=== PATIENT | male | born 1985 | race Caucasian/White ===

== ENCOUNTER 2025-03-13 22:34 | Emergency (ER) | payer BC, SELFPAY ==
--- NOTE | ~2025-03-13 | XR_ITS ---
XR foot LT min 3V Ordering provider: Luis King MD History: . blunt trauma 1st 2nd toes . Comparison: None. FINDINGS: BONES: Fracture of the tip of the distal phalanx of the first and second toes. JOINT SPACES: Normal. No tarsal coalition. SOFT TISSUES: Soft tissue swelling over the distal phalanx of the first and second toes. IMPRESSION: Fracture of the tip of the distal phalanx of the first and second toes. Reviewed, dictated and finalized at location A.
[2025-03-13 22:55] VITALS: BP 193/77; PULSE 74; RESP 19; TEMP 36.7; O2SAT 99
--- OUTSIDE RECORDS SUMMARY | 2025-03-13 23:50 | XMS_ITS | Continuity of Care Document ---
Author Organization [facility] Address [address] [place] [address] Phone Care Team Providers Care Pouch Maker Name Role Phone Gómez Ledbetter MD Unavailable Unavailable Allergies, Adverse Reactions, Alerts Substance Reaction Status Criticality No Known Drug Allergies Active No I nformation Procedures Procedure Date Office/outpatient visit,est, mod 2017 Supplemental Report Office/outpatient visit,est, mod 2017 Supplemental Report Office/outpatient visit,est, mod 2017 Supplemental Report Office/outpatient visit,est, mod 2017 Supplemental Report Asp/inject intermed joint/bursa w/o US g uidance Depo Medrol Methylprednisolone 40 MG inj Office/outpatient visit,est, mod 2017 Supplemental Report X-ray exam elbow, 3+ views Office/outpatient visit,est, mod 2017 Supplemental Report Office consultation, moderate 8 Breath Alcohol Test Specimen Handling/transport X-ray exam elbow, 3+ views Foster Arm Sling Office/outpatient visit,new, mod 2017 Supplemental Report Office/outpatient visit,est, mod 2012 X-ray exam Lumbar 2-3 views Office/outpatient visit,new, mod 2012 Supplemental Report Office/outpatient visit,martha, mod 2012 Supplemental Report Office/outpatient visit,est, mod 2012 X-ray exam Lumbar 2-3 views Office/outpatient visit,new, mod 2012 Office consultation, moderate-high Assay, breath ethanol Specimen handling/transport Medical Review Officer Charge 9 Office/outpatient visit,est, mod 2008 Supplemental Report Office/outpatient visit,est, mod 2008 Supplemental Report Office/outpatient visit,est, mod 2008 Supplemental Report Office/outpatient visit,new, mod 2008 X-ray exam lower spine 2-3 views 2008 Advance Directives Directive Yes / No Effective Date File Name No Information Encounters Encounter Description Practice Location Reason(s) For Visit Diagnoses Date Provider Providers Copied on Encounter Office/outpa tient visit,est, [facility], [address], [id number], [place] [phone] [email or web address] right elbow (chief complaint) Other sprain of right elbow, sequelaPrimary osteoarthritis, right elbow Jan-0 8 Khloe Magaña. [address] [place] [address], [id number] , [place]. tel: [phone] Office/outpa tient visit,est, [facility], [address], [id number], [place] [phone] [email or web address] right elbow (chief complaint) Contusion of right elbow, subsequent encounterPain in right elbow 8 Khloe Magaña. [address] [place] [address], [id number] , [place]. tel: [phone] Office/outpa tient visit,est, [facility], [address], [id number], [place] [phone] [facility] right elbow (chief complaint) Pain in right elbow 8 Naterosendo Magaña. [address] [facility] [place] [address], [place], [place], [id number] , [place]. tel: [phone] Office/outpa tient visit,est, [facility], [address] [address], [place], [place], [id number], [place] [phone] [facility] right elbow (chief complaint) Pain in right elbowContusion of right elbow, subsequent encounter 8 Khloe Gómez. [address] [facility], [place] [address], [place], [place], [id number] , [place]. tel: [phone] Office/outpa tient visit,est, [facility], [address], [id number], [place] [phone] [facility] right elbow (chief complaint) Contusion of right elbow, subsequent encounter 8 Natehazelwillam Gómez. [address] [facility], [place] [address], [place], [place], [id number] , [place]. tel: [phone] Office/outpa tient visit,est, [facility], [address], [id number], [place] [phone] [facility] right elbow (chief complaint) Contusion of right elbow, initial encounterContusio n of right elbow, subsequent encounter 8 Khloe Magaña. [address] [facility], [address] [facility], [place], [place], [id number] , [place]. tel: [phone] Office consultation , moderate [facility], [address], [id number], [place] [phone] [facility] Work Injury (chief complaint) Contusion of right elbow, initial encounter 8 Khloe Magaña. [address] [facility], [place] [address], [place], [place], [id number] , [place]. tel:[phone] Referring Provider: Hyun Haro, [address] [facility] [address] [facility], [place], [address] . tel:[phone] [facility], [address] [address], [place], [place], [id number], [place] tel:[phone] [facility] Encounter for other administrative examinations 8 Khoa Purvis. [address] [facility], [place] [address], [place], [place], [id number] , [place]. tel:[phone] Office/outpa tient visit,new, [facility], [address], [id number], [place] tel:[phone] [facility] Work Injury (chief complaint) Pain in right elbowContusion of right elbow, initial encounter 8 Khoa Purvis. [address] [facility], [place] [address], [place], [place], [id number] , [place]. tel:[phone] Office/outpa tient visit,est, [facility], [address] [address], [place], [place], [id number], [place] tel:[phone] [facility] SPRAIN LUMBOSACRALSacroi liitisLUMB/LUMBOS AC DISC DEGEN Dec-0 6-201 3 Khoa Purvis. [address] [facility], [place] [address], [place], [place], [id number] , [place]. tel:[phone] Office/outpa tient visit,new, [facility], [address], [id number], [place] tel:[phone] [facility] SPRAIN LUMBOSACRALSacroi liitisLUMB/LUMBOS AC DISC DEGENBackacheLUMB AGO Dec-0 2-201 3 Khoa Purvis. [address] [facility], [facility] [address], [place], [place], [id number] , [place]. tel:[phone] Office/outpa tient visit,est, [facility], [address] [address], [place], [place], [id number], [place] tel:[phone] [facility] SPRAIN LUMBOSACRALSacroi liitis 3 Khoa Purvis. [address] [facility], [place] [address], [place], [place], [id number] , [place]. tel: [phone] Office/outpa tient visit,est, [facility], [address] [address], [place], [place], [id number], [place] [phone] [facility] SPRAIN LUMBOSACRALSacroi liitis 3 Khoa Purvis. [address] [facility], [place] [address], [place], [place], [id number] , [place]. tel: [phone] Office/outpa tient visit,new, [facility], [address] [address], [place], [place], [id number], [place] [phone] [facility] BackacheSacroilii tisSPRAIN LUMBOSACRALLUMBAG O 3 Khoa Purvis. [address] [place] [address], [place] [address], [place], [place], [id number] , [place]. tel: [phone] Office consultation , moderate-hig h [facility], [address] [place] [address], [id number], [place] [phone] [facility] No Information 9 Allen Sahu. [address] [place] [address], [place] [address], [place], [place], [id number] , [place]. tel: [phone] Referring Provider: Hyun Haro, [address] [place] [address], [place], [address] . tel:[phone] [facility], [address] [place] [address], [id number], [place] tel:[phone] [facility] No Information Maurizio-3 0-200 9 Khoa Purvis. [address] [facility], [facility] [address], [place], [place], [id number] , [place]. tel:[phone] Office/outpa tient visit,[facility], [facility], [address] [facility] [address], [place], [place], [id number], [place] tel:[phone] [facility] No Information Maurizio-3 0-200 9 Khoa Collinsa. [address] [facility], [facility] [address], [place], [place], [id number] , [place]. tel: [phone] Office/outpa tient visit,[facility], [facility], [address] [address], [place], [place], [id number], [place] tel:[phone] [facility] No Information Apr-2 3-200 9 Khoa Collinsa. [address] [facility], [place] [address], [place], [place], [id number] , [place]. tel: [phone] Office/outpa tient visit,[facility], [facility], [address], [id number], [place] tel:[phone] [facility] No Information Apr-1 5-200 9 Khoa Hyun. [address] [facility], [facility] [address], [place], [place], [id number] , [place]. tel: [phone] Office/outpa tient visit,[facility], [facility], [address], [id number], [place] tel:[phone] [facility] No Information Apr-1 2-200 9 Khoa Hyun. [address], [id number] , [place]. tel:[phone] Family History Family Member Type Diagnosis Age At Onset No Information Payers Payer name Insurance type Covered constitution party ID Ravena harry(s) [facility] [id number] Social History Type Description Quantity Date Captured Comments Alcohol Use Details No Caffeine Use Details Unknown Tobacco Use Status Smoking Status Current every day smoker Non-Smoking Tobacco Use Details : No Details Available : No Details Available Sex Male Vital Signs Date / Time: Height Weight BMI Pulse Rate Blood Pressure Temperature Respiratory Rate Body Surface Area Head Circumference Head Circ. Percentile Wt./Carlos. Percentile BMI percentile Pulse Ox Inhaled Ox 8:43 AM 72.50 in 109.316 kg (241.00 lbs) 32.2 4 kg/m eter (2) Chief Complaint And Reason For Visit From encounter dated '01/28/2018 08:40'. right elbow (chief complaint). Description: Elvin returns to the office for right elbow complaints. Reason For Referral Reason For Referral No Information Plan Of Treatment Date Type Action Status Referral Ordered: MRI Upper extr joint, w/o contrast RT elbow Appointment date/timeframe: 01/24/2018 ordered Referral Ordered: X-ray exam elbow, 3+ views RT ordered Referral Ordered: X-ray exam Lumbar 2-3 views ordered Patient Education Body Mass Index: After Your Visit completed Patient Education Body Mass Index: After Your Visit completed Patient Education Body Mass Index: After Your Visit completed Patient Education Body Mass Index: After Your Visit completed Patient Education Body Mass Index: After Your Visit completed Patient Education Body Mass Index: After Your Visit completed Patient Education Stopping Smoking: After Your Visit completed Patient Education Body Mass Index: After Your Visit completed History Of Present Illness Encounter Date Complaint History Of Prese nt Illness right elbow Elvin returns to the office for right elbow complaints. right elbow Elvin returns to the office for right elbow follow up. right elbow Elvin presents to the office for right elbow complaints. right elbow Elvin returns to the office for right elbow follow up. right elbow Elvin returns to the office for right elbow follow up. right elbow Elvin returns to the office for right elbow follow up. Work Injury Elvin presents to the office for right elbow complaints. Work Injury patient complain s of right elbow pain Functional Status Date Functional Assessmen t No Information Instructions Date Instruction Additional Infor mation No Information Assessments Type Assessment Date assessment Other sprain of right elbow, seq uela assessment Primary osteoarthritis, right el bow Patient Care Teams Name Effective Dates (start - stop) Status Members No Information
--- OUTSIDE RECORDS SUMMARY | 2025-03-13 23:50 | XMS_ITS | Clinical Summary ---
Author Organization [facility] Address [facility] [place] [address] Care Team Providers Care Blue Crabber Name Role Phone aJke Dennison MD Primary Care Provider [phone] Allergies No known active allergies Social History Tobacco Use Types Packs/Day Years Used Date Smoking Tobacco: Never Smokeless Tobacco: Never Tobacco Cessation:Counseling Given: Not Answered Alcohol Use Standard Drinks/Week Comments Not Currently 0 (1 standard drink = 0.6 oz pur e alcohol) Sex and Gender Information Value Date Recorded Sex Assigned at Not on file Legal Sex Male 6:06 AM [employer]OE REPAIR [employer] Gender Identity Not on file Sexual Orientation Not on file Last Filed Vital Signs Vital Sign Reading Time Taken Comments Blood Pressure 148/68 01/22/2024 6:09 AM SHOE REPAIR COBBLER Pulse 79 01/22/2024 6:09 AM SHOE REPAIR COBBLER Temperature 36.5 C (97.7 F) 01/22/2024 6:09 AM SHOE REPAIR COBBLER Respiratory Rate 20 01/22/2024 6:09 AM SHOE REPAIR COBBLER Oxygen Saturation 97% 01/22/2024 6:09 AM SHOE REPAIR COBBLER Inhaled Oxygen Concentration - - Weight 111.1 kg (245 lb) 01/22/2024 6:09 AM SHOE REPAIR COBBLER Height 182.9 cm (6') 01/22/2024 6:09 AM SHOE REPAIR COBBLER Body Mass Index 33.23 01/22/2024 6:09 AM SHOE REPAIR COBBLER Plan of Treatment Health Maintenance Due Date Last Done Comments Annual Physical 1987 Hepatitis C 2002 DTaP, Tdap and Td Vaccines ( 1 - Tdap) 2003 Hepatitis B Vaccines (1 of 3 - 19+ 3-dose series) 2003 COVID-19 Vaccine (2023-2 5 season) 2024 HPV Vaccines Aged Out No longer eligi ble based on patient's age to complete this topic Meningococcal B Vaccine Aged Out No l onger eligible based on patient's age to complete this topic Meningococcal Vaccine Aged Out No shelbie nilo eligible based on patient's age to complete this topic Pneumococcal Vaccine: Pediat rics (0 to 5 Years) and At-Risk Patients (6 to 49 Years) Aged Out No longer eligible b ased on patient's age to complete this topic RSV Immunizations Under 20 Months Aged Out No longer eligible based on patient's age to complete this topic Insurance [facility] Care Teams Blue Crabber Relationship Specialty Start Date End Date Jake Dennison MD [address] [place] [address] DR ONEILL [address] [place] [id number] PCP - General FAMILY PRACTICE 01/22/24
[2025-03-14 01:10] VITALS: BP 149/83; PULSE 85; RESP 18; O2SAT 98
[2025-03-14] MEDS: ceFAZolin SODIUM 1 GM VIAL IM (01:13)
[2025-03-14] MEDS: TETANUS,DIPHTHERIA,AC PERTUSSIS ADULT (0.5 ML) BOOSTRIX IM (01:17)
--- NOTE | 2025-03-14 01:17 | ED_ITS ---
HPI - Extremity Injury (Lower) General Chief Complaint: Extremity Injury, Lower Stated Complaint: left foot injury Time Seen by Provider: 03/13/25 23:26 Source: patient Mode of arrival: ambulatory Limitations: no limitations History of Present Illness HPI Narrative: This is a 39-year-old male that presents to the emergency department for left foot pain after an injury prior to arrival. Reports he dropped a TV stand on his foot. Reports pain, swelling in his 1st and 2nd toes with lacerations present. Unsure of last tetanus vaccination. Related Data Allergies Allergy/AdvReac Type Severity Reaction Status Date / Time No Known Allergies Allergy Verified 03/13/25 22:36 Review of Systems Review of Systems: CONSTITUTIONAL: Denies fever SKIN: Reports laceration MUSCULOSKELETAL: Reports joint pain, and myalgia. NEUROLOGIC: Denies numbness All systems reviewed & are unremarkable except as noted in HPI and below PMFSH Past Medical History Medical History (Updated 03/14/25 @ 02:53 by Inna Hugo PA-C) No active medical problems Exam Narrative: GENERAL: Well-appearing, well-nourished, and in no acute distress. HEAD: Normocephalic, atraumatic. EYES: EOMI. EXTREMITIES: Normal range of motion. Normal DP pulse. Left 1st and 2nd toes with almost complete nail avulsions SKIN: Warm, dry, no rash. NEURO: No focal deficits. Alert and oriented x3. PSYCH: Normal mood and affect Course Vital Signs Vital signs: Vital Signs Temperature 98.1 F 03/13/25 22:55 Pulse Rate 74 03/13/25 22:55 Respiratory Rate 19 03/13/25 22:55 Blood Pressure 193/77 H 03/13/25 22:55 Pulse Oximetry 99 03/13/25 22:55 Temperature 98.1 F 03/13/25 22:55 Pulse Rate 85 03/14/25 01:10 Respiratory Rate 18 03/14/25 01:10 Blood Pressure 149/83 H 03/14/25 01:10 Pulse Oximetry 98 03/14/25 01:10 Procedures Laceration Laceration 1: Date: 03/14/25 Time: 03:10 Site: lower extremity Side (If applicable): left Description: irregular Depth: simple, single layer (nailbed repair) Local Anesthetic: lidocaine 1% Amount of anesthesia used (mL): 3 Pre-repair: wound explored and irrigated extensively ====== Skin Level ====== Skin layer closed with: vicryl Size (cm): 5-0 Number of sutures: 2 Technique: simple, interrupted ====== Subcutaneous Layer ====== ====== Muscle Layer ====== ====== Tendon Layer ====== Laceration 2: Date: 03/14/25 Time: 03:11 Site: lower extremity Side (If applicable): left Description: irregular Depth: simple, single layer Local Anesthetic: lidocaine 1% Amount of anesthesia used (mL): 3 Pre-repair: wound explored and irrigated extensively ====== Skin Level ====== Skin layer closed with: vicryl Size (cm): 5-0 Number of sutures: 4 Technique: simple, interrupted ====== Subcutaneous Layer ====== ====== Muscle Layer ====== ====== Tendon Layer ====== MDM - Extremity Injury (Lower) [facility] Narrative Medical decision making narrative: Patient presents the emergency department after an injury to the left foot. He is neurovascularly intact. He does have fractures of the 1st and 2nd distal phalanx. Associated injuries to the nailbeds with nails avulsed. Nail beds were repaired. Patient updated on tetanus. Given dose of Ancef. Will be started on Keflex. Will be given follow-up with Podiatry. He was given warnings to return to the ER Differential Diagnosis Differential diagnosis: Likely fracture of toe and other (Nail avulsion) Imaging Data Radiologist's impression: ITS Impressions Foot X-Ray 03/13/25 23:29 IMPRESSION: Fracture of the tip of the distal phalanx of the first and second toes. Critical Care Time Critical Care Time Critical Care Time: No Discharge Plan Discharge Clinical Impression: Open fracture of toe of left foot, Avulsion of nail Patient Disposition: Home Condition: Stable Instructions: Antibiotic Form, Toe Fracture (ED), Nail Avulsion (ED) Additional Instructions: Return to the emergency department if you experience fever, redness or swelling of your wound, abnormal drainage from your wound, or any other symptoms that are concerning to you. Do not soak the wound. You may let the water run over the wound in the shower. Apply antibiotic ointment and cover with nonstick bandage. Take oral antibiotic as prescribed Follow-up with podiatry Patient Language: Cypriot Prescriptions: New cephalexin 500 mg capsule 500 mg PO Q8H 7 Days Qty: 21 0RF hydrocodone-acetaminophen 5-325 mg tablet 1 tablet PO Q6H PRN (Reason: pain) Qty: 20 0RF Follow-up/Referrals: Juma,Jake Chaney MD [Primary Care Provider] - Eduarda Bhandari DPM [Physician] -
[2025-03-14] MEDS: WATER, STERILE FOR INJECTION 10 ML VIAL XX (01:18)
--- NOTE | 2025-03-14 01:24 | PC.NURSE ---
Patient medicated as per jan with tDAP and IM cefazolin. Pt declining hydrocodone. Lidocaine to PA. Pt provided with turkey sandwich. Denies further needs. Call light in reach.
[2025-03-14] MEDS: LIDOCAINE 1% LOCAL INJ 10 ML VIAL INFILTRATE (01:27)
--- NOTE | 2025-03-14 02:06 | PC.NURSE ---
PA at bedside for repair
[2025-03-14 03:02] VITALS: BP 165/84; PULSE 80; RESP 18; O2SAT 97
== END 2025-03-14 03:09 | disposition home or self-care (01) ==
PROVIDERS: Emergency Provider Physician Assistant; PCP Family Medicine
DX: S92.422B Displaced fracture of distal phalanx of left great toe, initial encounter for open fracture (principal); S92.532B Displaced fracture of distal phalanx of left lesser toe(s), initial encounter for open fracture; Z23 Encounter for immunization; W20.8XXA Other cause of strike by thrown, projected or falling object, initial encounter
CPT/HCPCS: 12001; 73630; 90471; 90715; 96372; 99284; J0690; J2003